=== PATIENT | male | born 1985 | race African-American/Black ===

== ENCOUNTER 2017-04-05 16:46 | Emergency (ER) | payer SELFPAY ==
[~2017-04-05] VITALS: Ht 190.5 cm; Wt 72.0 kg
[~2017-04-05 16:46] MED LIST: OXYC1TAB63 PO
[2017-04-05 16:47] VITALS: BP 115/62; PULSE 83; RESP 18; TEMP 97.8; O2SAT 100
--- NOTE | 2017-04-05 17:49 | PD ---
HPI Chief Complaint: Yoke Presser Problem Time Seen by Provider: 17:20 Travel History International Travel<30 days: No Contact w/Intl Traveler<30days: No Traveled to known affect area: No History of Present Illness HPI 31-year-old Afro-Cypriot male presents the emergency department status post fracture of the right wrist with ORIF performed by Dr. Nair on March 05. Patient was seen in Dr. Nair office earlier today and was sent here for splinting by the orthostatics. The patient has no acute complaints. His pain is 3 out of 10. He has no known drug allergies. PFSH Past Medical History Cancer: No Cardiovascular Problems: No Endocrine: No Gastrointestinal Disorders: No Genitourinary: No Immune Disorder: No Implanted Vascular Access Dvce: No Musculoskeletal: No Neurologic: No Psychiatric: No Reproductive: No Respiratory: No Tetanus Vaccination: < 5 Years Past Surgical History AICD: No Arteriovenous Shunt: No Insulin Pump: No Joint Replacement: No Pacemaker: No Social History Alcohol Use: No Tobacco Use: No Substance Use: Yes (MARIJUANA EVERY ONCE IN A WHILE) Allergies-Medications (Allergen,Severity, Reaction): Coded Allergies: No Known Allergies (Verified Adverse Reaction, Unknown, 04/05/17) Reported Meds & Prescriptions Reported Meds & Active Scripts Active Oxycodone-Acetaminophen 5-325 mg Tab 1 Tab PO Q6H PRN Review of Systems Except as stated in HPI: all other systems reviewed are Neg General / Constitutional: No: Fever Eyes: No: Visual changes HENT: No: Headaches Cardiovascular: No: Chest Pain or Discomfort Respiratory: No: Shortness of Breath Gastrointestinal: No: Abdominal Pain Genitourinary: No: Dysuria Musculoskeletal: Positive: Arthralgias, Limited ROM, Pain (see history of present illness) Skin: No Rash Neurologic: No: Weakness Psychiatric: No: Depression Endocrine: No: Polydipsia Hematologic/Lymphatic: No: Easy Bruising Physical Exam Narrative GENERAL: Patient is no acute distress. SKIN: Warm and dry. Normal color. Normal turgor. Well healed incision to the volar right wrist. HEAD: Atraumatic. Normocephalic. EYES: Pupils equal and round. No scleral icterus. No injection or drainage. ENT: No nasal bleeding or discharge. Mucous membranes pink and moist. Pharynx is clear. Airway is patent. NECK: Trachea midline. Neck is supple. CARDIOVASCULAR: Regular rate and rhythm. RESPIRATORY: No accessory muscle use. Clear to auscultation. Breath sounds equal bilaterally. MUSCULOSKELETAL: Extremities without clubbing, cyanosis, or edema. No obvious deformities. Patient has decreased rotation and flexion of the right wrist consistent with his history. No other acute findings are noted. NEUROLOGICAL: Awake and alert. No obvious cranial nerve deficits. Motor grossly within normal limits. Five out of 5 muscle strength in the arms and legs. Normal speech. PSYCHIATRIC: Appropriate mood and affect; insight and judgment normal. Data Data Last Documented VS Vital Signs Date Time Temp Pulse Resp B/P (MAP) Pulse Ox O2 Delivery O2 Flow Rate FiO2 04/05/17 16:47 97.8 83 18 115/62 (79) 100 Room Air Orders Orders Splinting (04/05/17 ) [facility] Medical Decision Making Medical Screen Exam Complete: Yes Emergency Medical Condition: Yes Medical Record Reviewed: Yes Differential Diagnosis Right wrist fracture. Status post ORIF right wrist. Need for splint. Narrative Course Patient is medically stable at time of exam. Orthotec apply Velcro wrist splint per Dr. Nair ordered. Patient follow-up with Dr. Nair office as previously scheduled in 2 weeks. Diagnosis Primary Impression: right distal radius fracture Referrals: Yordan Nair MD Patient Instructions: General Instructions, Splint Care (ED) Additional Instructions: Orthotec apply Velcro wrist splint per Dr. Nair ordered. Patient follow-up with Dr. Nair office as previously scheduled in 2 weeks. Med/Other Pt SpecificInfo: No Change to Meds Disposition: 01 DISCHARGE HOME Condition: Stable Nam Capellan Apr 05, 2017 17:49
== END 2017-04-05 18:22 | disposition home or self-care (01) ==
LOC: NEPK 16:46
DX: S52.501D Unspecified fracture of the lower end of right radius, subsequent encounter for closed fracture with routine healing (principal); X58.XXXD Exposure to other specified factors, subsequent encounter
CPT/HCPCS: 99282; L3908